=== PATIENT | male | born 1995 | race Caucasian/White ===

== ENCOUNTER 2022-12-12 13:11 | Outpatient (CLI) | payer OTHER ==
--- NOTE | 2022-12-12 14:27 | Sleep Patient Instructions ---
Sleep Center Visit Summary - Patient Visit Information Reason for Visit: Initial consult for evaluation of sleep disordered breathing and other sleep issues. - Patient Instructions Instructions Attached: Sleep Study Home Monitor Additional Instructions: You will be completing a sleep study, either an in-lab polysomnography (PSG) or home sleep study (HST). You will follow-up in the sleep care office after the sleep study is completed to hear the results and talk about therapy, if needed. You will be called by our office staff to schedule this appointment, but you may contact us with any questions. - Clinic Information Contact: [facility] [address] [place] [address] [email or web address] T: [phone]
--- NOTE | 2022-12-12 14:33 | SLEEP CARE CONSULTATION ---
Information from patient questionnaire entered by Won Castanon. I have reviewed and concur with the information entered by Won Castanon. This document represents the service I personally performed and the decisions made by me, Shannen Mon ARNP. History of Present Illness Service Date and Time: 12/12/2022 1311 Reason for Visit: New patient Chief Complaint: reports: Unrefreshed sleep, Snoring, Observed pauses in breathing, Fatigue, Frequent awakenings at night Date of Onset: 12MONTHS Usual bedtime: 1030PM Time it takes to fall asleep: 15-20 Snores at night: Yes Observed to quit breathing while asleep: Yes Sleeps alone due to snoring: No Number of times waking at night: 2-3 Reasons for waking at night: reports: Snoring, Other (UNKNOWN). denies: Choking, Gasping for air Toss, Turn, or Twitch while sleeping: Yes Recalls having dreams: Yes Usually gets out of bed at: 630AM; weekends 08-0900 Feels refreshed in the morning: Yes (sometimes; other mornings feels really tired) Morning headache: No Sleepy or fatigued during the day: Yes Ever fallen asleep while driving: No Takes day naps: No Dreams during day naps: No Additional HPI information: I had the pleasure of seeing ANJUM FLORES today regarding the possibility of him having a sleep disorder. His current complaints are fatigue, frequent night awakenings, observed pauses in breathing, snoring and unrefreshed sleep. His has told him that he snores loudly and will stop breathing in his sleep. He has noted that he does not always feel rested even after sleeping 8 hours. He states he will sometimes sleep through the night without problem and others he will toss and turn all night. He denies waking up gasping for air or feeling like he is choking. He states if he is watching TV after work and laying on couch he may fall asleep but he rarely takes unintentional naps. - Parasomnia Symptoms Ever been unable to move upon waking from sleep: No Walks in sleep: No Talks in sleep: No Ever acted out dreams in sleep: No Ever felt weak in the knees when startled or emotional: No Bothered by creepy, crawly, restless sensations in legs: No Problems with memory or concentration: Yes (both; concentration is worse) Subjective Initial [place] Sleepiness Scale score: 4 (12/12/22) Past Medical History Past Medical History: reports: Other (no significant medical history) Social History The patient's occupation is a AM. Patient is and lives in . Have you smoked in the past 12 months: No Cigarettes per day (20/pack): 10 Years of smokin Quit date: 2017 Smoking Pack Years: 5.0 Alcohol use: Yes Alcohol amount and frequency: 1-3 DRINKS 4-5 PER WEEK Caffeine use: Yes Caffeine amount and frequency: 1 CUP ONCE A DAY Family History Family history of sleep disordered breathing: Yes Family Hx Sleep Apnea: Father: Snoring, Grandparent: Snoring, Sleep apnea - Treated Allergies and Home Medications Known drug allergies: Yes (CEPHALEXIN, CLINDAMICIN) Drug allergies reviewed: Yes Home medication list reviewed: Yes Allergy and home medication list: Allergies cephalexin Allergy (Verified 12/12/22 13:46) clindamycin Allergy (Verified 12/12/22 13:46) Home Medications No Known Home Medications 12/12/22 [History] Review of Systems Weight gain over past 5 years: 20 Cardiovascular: reports: high blood pressure (diet controlled), palpitations Gastrointestinal: denies: heartburn Neurological: denies: headaches Psychiatric: denies: anxiety, depression Ear/Nose/Throat: reports: wisdom teeth removed. denies: tonsillectomy Immunologic: reports: allergies to food or environment (mild seasonal allergies) Physical Exam Vital signs obtained and entered by: WON Bean MA Blood Pressure: 125/83 (RIGHT) Cuff size: wrist Heart Rate: 72 O2 Saturation: 99 Height: 6 ft 2 in Weight: 266 lb 12.8 oz Body Mass Index: 34.2 BMI Classification: Obese Neck circumference: 17.75 Mouth and throat: normal Soft palate: normal Hard palate: normal Uvula: normal Uvula visualization: 50% Mallampati Class II Tongue: enlarged in size with teeth ma on lateral edges Tonsils: 1+ Neck: normal w/o lymphadenopathy or thyromegaly Heart: regular rate and rhythm Lungs: clear bilaterally Impression and Plan 1. Suspected Obstructive Sleep Apnea-Hypopnea Syndrome, as suggested by a history of loud and irregular snoring, observed cessation of breath while asleep, frequent awakening during the night, unrefreshed sleep and cognitive impairment. Narrow oropharynx and obesity are common predisposing factors for obstructive sleep apnea-hypopnea syndrome. I recommend proceeding to polyso mnography to confirm the diagnosis and to assess severity. If the patient has significant sleep disordered breathing, a manual CPAP titration study will also be performed to find the optimal treatment pressure. I informed the patient of what the sleep studies involve and after some discussion, obtained agreement to proceed. The pathophysiology of obstructive sleep apnea-hypopnea syndrome was discussed with the patient and health risks of cardiovascular and cerebrovascular disease if not treated. Risks of drowsy driving discussed in detail and patient advised to avoid long distance driving and to hook puller at the first sign of drowsiness. Patient agreed to plan. * Schedule polysomnography. * Avoid long distance driving or driving when feeling sleepy. * Avoid alcohol, sedative and muscle relaxant around bedtime. * Attempt to lose weight. * Review instructions provided by trained office staff on how to prepare for the sleep study. * Return for follow-up after sleep study completed. Counseling Topics: Weight loss health impact Visit Type: In Office Time Spent with Patient (minutes): 30 Provider Statement: I spent 100% of the Face to Face Visit with the patient with greater than 50% spent counseling the patient and coordination of care.
[2022-12-12 14:37] VITALS: BP 125/83; O2SAT 99
== END 2022-12-12 13:12 | disposition home or self-care (01) ==
LOC: SC 13:11
PROVIDERS: ATTEND Nurse Practitioner Family
DX: R06.83 Snoring (principal); G47.8 Other sleep disorders; R06.81 Apnea, not elsewhere classified; R53.83 Other fatigue; E66.9 Obesity, unspecified; Z68.34 Body mass index [BMI] 34.0-34.9, adult; Z87.891 Personal history of nicotine dependence
CPT/HCPCS: 99203; 99212

== ENCOUNTER 2022-12-27 08:25 | Outpatient (CLI) | payer OTHER | END 2022-12-27 08:26 | disposition home or self-care (01) | LOC: SC 08:25 | PROVIDERS: ATTEND Nurse Practitioner Family | DX: G47.33 Obstructive sleep apnea (adult) (pediatric) (principal); R09.02 Hypoxemia; E66.9 Obesity, unspecified; Z68.34 Body mass index [BMI] 34.0-34.9, adult | CPT/HCPCS: 95806 ==

== ENCOUNTER 2023-01-23 11:26 | Outpatient (CLI) | payer OTHER ==
--- NOTE | 2023-01-23 11:50 | Sleep Patient Instructions ---
Sleep Center Visit Summary - Patient Visit Information Reason for Visit: Sleep study follow-up - Patient Instructions Instructions Attached: CPAP Dc, CPAP Additional Instructions: You are being started on CPAP therapy with pressure setting at 4-15 cmH2O. You will need to call the sleep care office to set up your follow up once you have your APAP machine and we will schedule a visit to check compliance and response to therapy at that time. You may call the office with any concerns about pressure feeling too low or too much for adjustment, if needed. You should contact DME supplier for any questions or concerns about mask or equipment. Please call office to schedule a follow up appointment in the sleep care office one month after obtaining new device. - Clinic Information Contact: [facility] [address] [place] [address] [email or web address] T: [phone]
--- NOTE | 2023-01-23 11:53 | SLEEP CARE CONSULTATION ---
Information from patient questionnaire entered by Meliza Castanon. I have reviewed and concur with the information entered by Meliza Castanon. This document represents the service I personally performed and the decisions made by me, Shannen Mon ARNP. History of Present Illness Service Date and Time: 01/23/2023 112 Initial [place] Sleepiness Scale score: 4 (12/12/22) Current [place] Sleepiness Scale score: 4 (01/23/23) Additional HPI information: ANJUM FLORES returns for follow up and results of the recently performed home sleep study. The sleep study showed mild obstructive sleep apnea with an average AHI of 12.3 and rissa oxygen saturation of 80%. I explained the pathophysiology behind obstructive sleep apnea. We then spent quite a bit of time discussing different treatment options. For mild obstructive sleep apnea, surgery and oral appliance are alternatives to nasal CPAP therapy but in moderate or severe cases, nasal CPAP is the most effective and reliable treatment. Because apnea is primarily in supine position, then positional management therapy could be effective. Methods discussed such as positioning with pillows, using a T-shirt with tennis balls in the back or commercial products that have a pillow format on back to prevent supine sleep. I reviewed the impact of weight changes on sleep apnea and strongly recommended losing weight. After some discussion, the patient opted to go with the nasal CPAP therapy. Nasal autoCPAP set at 4-15 cmH20 will be ordered with rationale explained. A manual titration study will be ordered if unable to find optimal pressure with office adjustments. I explained how CPAP machine works and what to expect when using the machine. Using CPAP every night in order to get used to it was emphasized. Patient advised to put CPAP mask on before getting into bed so as not to fall asleep without CPAP. To assist acclimation to CPAP use, it could also be used for a short time during day while reading or watching TV. The patient was instructed to call the CPAP supplier to discuss any mechanical problem that may occur. If the mask given is uncomfortable or is difficult to keep on through the night even with adjustment, contact the CPAP supplier as many will replace with another mask style if notified before 30 days. If snoring or perceives is not getting enough air or too much air from the machine, notify this office. Patient counseled not drink alcohol less than 4 hours before bedtime as it can increase snoring and apnea. Patient was cautioned about risks of drowsy driving until sleepiness symptoms resolve. Patient denies drowsy driving. Sleep Study - Results Type of Sleep Study: Home sleep study (COMPLETED 12/28/22) Polysomnography/Home Sleep Study results: Physician Impression: The quality of the study is good. The length of the study is adequate (> 240 minutes). Please also see the tabulated and graphic data. 1. Obstructive Sleep Apnea-Hypopnea (ICD-10 G47.33), mild, with an AHI of 12.3 /hr and rissa SaO2 of 80%. During the study, the patient had 33 apneas (33 obstructive, 0 central, 0 mixed) and 58 hypopneas. The longest episode lasted 117.5 seconds. The respiratory events occurred almost exclusively during supine sleep (supine AHI was 30.3 and non-supine, 1.72). 2. Hypoxemia (ICD-10 R09.02), mild, with the lowest oxygen saturation of 80 % and 33.0 minutes with SaO2 under 90%. Baseline oxygen saturation was normal (Average oxygen saturation was 94%). Allergies and Home Medications Known drug allergies: Yes (as listed) Drug allergies reviewed: Yes Home medication list reviewed: Yes (no changes) Allergy and home medication list: Allergies cephalexin Allergy (Verified 01/22/23 12:37) clindamycin Allergy (Verified 01/22/23 12:37) Review of Systems Review of systems same as previous: Yes (NO CHANGES) Physical Exam Vital signs obtained and entered by: MELIZA Bean MA Blood Pressure: 136/88 (LEFT ARM) Cuff size: long Heart Rate: 79 O2 Saturation: 98 Height: 6 ft 2 in Weight: 271 lb 12.8 oz Body Mass Index: 34.9 BMI Classification: Obese Impression and Plan 1. Obstructive Sleep Apnea-Hypopnea Syndrome, mild, with lowest oxygen saturation of 80%. Obviously this is the cause of the patients symptoms of unrefreshed sleep, and excessive daytime sleepiness. As mentioned above, the patient will be started on nasal autoCPAP therapy with pressure set at 4-15 cmH2 O. A manual titration study will be completed if unable to find optimal treatment pressure with office adjustments. Compliance guidelines also reviewed. A copy of compliance guidelines will be given for reference at check out. Because the apnea is more severe supine, I instructed to avoid sleeping supine using pillow positioning until able to start CPAP use. 2. Hypoxemia, mild, with a rissa oxygen saturation of 80% and 33 minutes spent under 90%. His baseline oxygen saturation was normal with an average oxygen saturation of 94%. 3. Obesity, unspecified. Currently patients BMI is 34.9. Obesity increases the risk of apnea, CPAP pressure requirements and overall health risks especially cardiovascular and diabetes. Thus patient is advised to lose weight. * Nasal auto CPAP therapy, pressure at 4-15 cm H2O. * Attempt to lose weight. * Avoid alcohol consumption near bedtime. * Avoid supine sleep until using CPAP. * The patient is again cautioned about driving until sleepiness completely resolves. * Return one month after CPAP obtained. I will assess response to therapy and compliance at that time. Counseling Topics: Sleeping position, Weight loss health impact Prescriptions: Auto CPAP Visit Type: In Office Time Spent with Patient (minutes): 20 Provider Statement: I spent 100% of the Face to Face Visit with the patient with greater than 50% spent counseling the patient and coordination of care.
[2023-01-23 11:57] VITALS: BP 136/88; O2SAT 98
== END 2023-01-23 11:27 | disposition home or self-care (01) ==
LOC: SC 11:26
PROVIDERS: ATTEND Nurse Practitioner Family
DX: G47.33 Obstructive sleep apnea (adult) (pediatric) (principal); R09.02 Hypoxemia; E66.9 Obesity, unspecified; Z68.34 Body mass index [BMI] 34.0-34.9, adult
CPT/HCPCS: 99212; 99213

== ENCOUNTER 2023-03-13 12:48 | Outpatient (CLI) | payer OTHER ==
--- NOTE | 2023-03-13 13:13 | Sleep Patient Instructions ---
Sleep Center Visit Summary - Patient Visit Information Reason for Visit: First Compliance Visit - Patient Instructions Additional Instructions: You were here for follow up of CPAP therapy. You will be continued on CPAP therapy with pressure at 8-12 cmH2O. Please let us know if the pressure change is uncomfortable and we can make further adjustments of the pressure. You should follow up with sleep care in 1-2 months. You may contact us sooner for any questions or concerns. - Clinic Information Contact: [facility] [address] [place] [id number] [email or web address] T: [phone]
--- NOTE | 2023-03-13 13:18 | SLEEP CARE CONSULTATION ---
Information from patient questionnaire entered by Meliza Castanon. I have reviewed and concur with the information entered by Meliza Castanon. This document represents the service I personally performed and the decisions made by , Shannen Mon ARNP. History of Present Illness Service Date and Time: 03/13/2023 1248 Previous diagnosis: Mild, Obstructive Sleep Apnea-Hypopnea Syndrome AHI: 12.3 (11/2022) Reason for follow up: first compliance Equipment type: CPAP (RESMED Airsense 10, s/u 12/2022) Equipment obtained from: Other ([facility]; got initial supplies) Mask style: Full face (hybrid) Backup mask available: No (will keep old mask when replaced) Last cushion change: 1 month Type of Sleep Study: Home sleep study (COMPLETED 12/28/22) HPI additional information: ANJUM FLORES was diagnosed to have mild, AHI 12.3, obstructive sleep apnea- hypopnea syndrome and returned today for CPAP therapy first compliance follow- up. Sleep Study - Results Type of Sleep Study: Home sleep study (COMPLETED 12/28/22) CPAP Compliance Data - Data Reviewed with Patient Average duration of nightly device use: 4 hours 37 minutes Compliance rate %: 53 (22/30 days used) Current pressure setting (cmH2O): 4-15 (median 7.9, avg 10.6, max 11.5) Average residual AHI: 2 Central apnea: 0.2 Obstructive apnea: 1.2 Average large leak: 0 L/min Subjective Missed days of use due to: reports: travel Patient concerns: reports: other (drooling in sleep). denies: aerophagia, mask discomfort, air blowing in eyes, mask leak noise, condensation in mask/hose, nasal congestion, dry mouth, nose, throat, epistaxis Observed to snore while using device: No Current pressure setting perceived as: comfortable On therapy, patient: reports: sleeping better, awakening more refreshed, being more awake and alert during the day, more rested overall. denies: drowsiness while driving Initial [place] Sleepiness Scale score: 4 (12/12/22) Current [place] Sleepiness Scale score: 4 (03/13/23) Allergies and Home Medications Known drug allergies: Yes (as listed) Drug allergies reviewed: Yes Home medication list reviewed: Yes (no changes) Allergy and home medication list: Allergies cephalexin Allergy (Verified 03/12/23 10:03) clindamycin Allergy (Verified 03/12/23 10:03) Review of Systems Review of systems same as previous: Yes (NO CHANGE) Physical Exam Vital signs obtained and entered by: MELIZA Bean MA Blood Pressure: 137/83 (RIGHT ARM) Cuff size: regular Heart Rate: 78 O2 Saturation: 98 Height: 6 ft 2 in Weight: 272 lb Body Mass Index: 34.9 BMI Classification: Obese Impression and Plan 1. Obstructive Sleep Apnea-Hypopnea Syndrome, mild, with fair treatment compliance and good apnea control. On CPAP therapy, the patient has better sleep quality and is more rested overall. Patient traveled a couple of times over the weekends and forgot to take his machine with him. He will not always replace the mask if he gets up to the bathroom at night and has had 4 hours of time with mask on. I encouraged him to continue to wear the mask for at least 6.5 to 7 hours at night to get full benefit of using his CPAP. He voiced understanding. The patients pressure will be changed to autoCPAP 8-12 cmH20 to reflect pressure being used. Patient advised to contact me if pressure change is uncomfortable so that it can be adjusted. Goals for apnea control discussed. Kirsten starksjoe's apnea severity and rationale for treatment to reduce apnea, improve sleep quality and reduce cardiovascular and cerebrovascular events was reviewed. 2. Obesity, unspecified. Currently patients BMI is 34.9. Obesity increases the risk of apnea, CPAP pressure requirements and overall health risks especially cardiovascular and diabetes. Thus patient is advised to lose weight. * Change auto CPAP pressure to 8-12 cmH2O * Notify me if snoring with mask or feeling that the pressure is too much or too little * Attempt to lose weight * Call this office if any problems using CPAP * Return for follow up in 1-2 months, or sooner if concerns arise Counseling Topics: Spare mask, Weight loss health impact Follow up with Sleep Care in: 1-2 months Visit Type: In Office Time Spent with Patient (minutes): 20 Provider Statement: I spent 100% of the Face to Face Visit with the patient with greater than 50% spent counseling the patient and coordination of care.
[2023-03-13 13:24] VITALS: BP 137/83; O2SAT 98
== END 2023-03-13 12:49 | disposition home or self-care (01) ==
LOC: SC 12:48
PROVIDERS: ATTEND Nurse Practitioner Family
DX: G47.33 Obstructive sleep apnea (adult) (pediatric) (principal); E66.9 Obesity, unspecified; Z68.34 Body mass index [BMI] 34.0-34.9, adult
CPT/HCPCS: 99212; 99213

== ENCOUNTER 2023-05-01 08:51 | Outpatient (CLI) | payer OTHER ==
--- NOTE | 2023-05-01 09:11 | Sleep Patient Instructions ---
Sleep Center Visit Summary - Patient Visit Information Reason for Visit: One month follow up for PAP therapy - Patient Instructions Additional Instructions: You were here for follow up of CPAP therapy. You will be continued on CPAP therapy with pressure at 8-12 cmH2O. You should follow up with sleep care in 3 months. You may contact us sooner for any questions or concerns. - Clinic Information Contact: [facility] [address] [place] [address] [email or web address] T: [phone]
--- NOTE | 2023-05-01 09:15 | SLEEP CARE CONSULTATION ---
Information from patient questionnaire entered by Meliza Castanon. I have reviewed and concur with the information entered by Meliza Castanon. This document represents the service I personally performed and the decisions made by me, Shannen Mon ARNP. History of Present Illness Service Date and Time: 05/01/2023 0851 Previous diagnosis: Mild, Obstructive Sleep Apnea-Hypopnea Syndrome AHI: 12.3 (11/2022) Reason for follow up: one month (F/U) Equipment type: CPAP (RESMED Airsense 10, s/u 12/2022) Equipment obtained from: Other ([facility]; got initial supplies) Mask style: Full face (hybrid) Mask brand: Respironics (EcoStart) Backup mask available: No (will keep old mask when replaced) Last cushion change: few months Type of Sleep Study: Home sleep study (COMPLETED 12/28/22) HPI additional information: ANJUM FLORES was diagnosed to have mild, AHI 12.3, obstructive sleep apnea- hypopnea syndrome and returned today for CPAP therapy one month follow-up. Sleep Study - Results Type of Sleep Study: Home sleep study (COMPLETED 12/28/22) CPAP Compliance Data - Data Reviewed with Patient Average duration of nightly device use: 6 HRS 13 MINS Compliance rate %: 83 (03/30/23-04/28/23; days used) Current pressure setting (cmH2O): 8-12 Average residual AHI: 1.6 Central apnea: 0.3 Obstructive apnea: 0.9 Average large leak: 0.1 L/min Subjective Patient concerns: reports: dry mouth, nose, throat (sometimes). denies: aerophagia, mask discomfort, air blowing in eyes, mask leak noise, condensation in mask/hose, nasal congestion, epistaxis Observed to snore while using device: No Current pressure setting perceived as: comfortable On therapy, patient: reports: sleeping better, awakening more refreshed, being more awake and alert during the day, more rested overall. denies: drowsiness while driving Initial [place] Sleepiness Scale score: 4 (12/12/22) Current [place] Sleepiness Scale score: 3 (05/01/23) Allergies and Home Medications Known drug allergies: Yes (as listed) Drug allergies reviewed: Yes Home medication list reviewed: Yes (no changes) Allergy and home medication list: Allergies cephalexin Allergy (Verified 04/09/23 08:40) clindamycin Allergy (Verified 04/09/23 08:40) Review of Systems Review of systems same as previous: Yes (no change) Physical Exam Vital signs obtained and entered by: MELIZA Bean MA Blood Pressure: 130/81 (RIGHT ARM) Cuff size: regular Heart Rate: 62 O2 Saturation: 98 Height: 6 ft 2 in Weight: 262 lb 6.4 oz Weight change since last visit: 10 lbs loss Body Mass Index: 33.7 BMI Classification: Obese Impression and Plan 1. Obstructive Sleep Apnea-Hypopnea Syndrome, mild, with good treatment compliance and good apnea control. On CPAP therapy, the patient has better sleep quality and is more rested overall. He states that he is comfortable wearing the mask and is putting it on every night. Patient has significant improvement of their sleep apnea and is satisfied with current CPAP therapy. Patient denies problems with oral dryness, nasal congestion, epistaxis, skin irritation or aerophagia. I will see him in follow up in 3 months. Patient's apnea severity and rationale for treatment to reduce apnea, improve sleep quality and reduce cardiovascular and cerebrovascular events was reviewed. 2. Obesity, unspecified. Currently patients BMI is 33.7. He has lost weight. He is using an caio to monitor calorie intake. Obesity increases the risk of apnea, CPAP pressure requirements and overall health risks especially cardiovascular and diabetes. Thus patient is advised to continue to try to lose weight. * Continue auto CPAP pressure at 8-12 cmH2O * Notify me if snoring with mask or feeling that the pressure is too much or too little * Attempt to lose weight * Call this office if any problems using CPAP * Return for follow up in 3 months, or sooner if concerns arise Continue with device pressure at (cmH2O): 8-12 Counseling Topics: Spare mask, Weight loss health impact Follow up with Sleep Care in: 3 months Visit Type: In Office Time Spent with Patient (minutes): 11 Provider Statement: I spent 100% of the Face to Face Visit with the patient with greater than 50% spent counseling the patient and coordination of care.
[2023-05-01 09:23] VITALS: BP 130/81; O2SAT 98
== END 2023-05-01 08:52 | disposition home or self-care (01) ==
LOC: SC 08:51
PROVIDERS: ATTEND Nurse Practitioner Family
DX: G47.33 Obstructive sleep apnea (adult) (pediatric) (principal)
CPT/HCPCS: 99212

== ENCOUNTER 2023-08-06 14:28 | Outpatient (CLI) | payer OTHER ==
--- NOTE | 2023-08-06 14:57 | Sleep Patient Instructions ---
Sleep Center Visit Summary - Patient Visit Information Reason for Visit: 3-month follow-up - Patient Instructions Additional Instructions: You were here for follow up of CPAP therapy. You will be continued on CPAP therapy with pressure at 8-12 cmH2O. You should follow up with sleep care in 6 months. You may contact us sooner for any questions or concerns. - Clinic Information Contact: [facility] [address] [place] [address] [email or web address] T: [phone]
--- NOTE | 2023-08-06 15:00 | SLEEP CARE CONSULTATION ---
Information from patient questionnaire entered by Meliza Castanon. I have reviewed and concur with the information entered by Meliza Castanon. This document represents the service I personally performed and the decisions made by , Shannen Mon ARNP. History of Present Illness Service Date and Time: 08/06/2023 1428 Previous diagnosis: Mild, Obstructive Sleep Apnea-Hypopnea Syndrome AHI: 12.3 (11/2022) Reason for follow up: three month (F/U) Equipment type: CPAP (RESMED Airsense 10, s/u 12/2022) Equipment obtained from: Other ([facility]; getting supplies) Mask style: Full face (hybrid) Backup mask available: Yes Last cushion change: 1 month Type of Sleep Study: Home sleep study (COMPLETED 12/28/22) HPI additional information: ANJUM FLORES was diagnosed to have mild, AHI 12.3, obstructive sleep apnea- hypopnea syndrome and returned today for CPAP therapy three month follow-up. Sleep Study - Results Type of Sleep Study: Home sleep study (COMPLETED 12/28/22) CPAP Compliance Data - Data Reviewed with Patient Average duration of nightly device use: 5 HRS 48 MINS Compliance rate %: 39 (05/02/23-07/30/23; 47/90 days used) Current pressure setting (cmH2O): 8-12 Average residual AHI: 1.1 Central apnea: 0.1 Obstructive apnea: 0.8 Hypopnea: 0.2 Average large leak: 0 L/min Subjective Missed days of use due to: reports: travel (forgot machine at home) Patient concerns: denies: aerophagia, mask discomfort, air blowing in eyes, mask leak noise, condensation in mask/hose, nasal congestion, dry mouth, nose, throat, epistaxis Observed to snore while using device: No Current pressure setting perceived as: comfortable On therapy, patient: reports: sleeping better, awakening more refreshed, being more awake and alert during the day, more rested overall. denies: drowsiness while driving Initial [place] Sleepiness Scale score: 4 (12/12/22) Current [place] Sleepiness Scale score: 4 Allergies and Home Medications Known drug allergies: Yes (as listed) Drug allergies reviewed: Yes Home medication list reviewed: Yes (no changes) Allergy and home medication list: Allergies cephalexin Allergy (Verified 08/01/23 09:23) clindamycin Allergy (Verified 08/01/23 09:23) Review of Systems Review of systems same as previous: Yes (no changes) Physical Exam Vital signs obtained and entered by: SHANNEN SHRESTHA Blood Pressure: 162/80 (just had caffiene drink within 30 mins of appt) Cuff size: regular Heart Rate: 102 O2 Saturation: 98 Height: 6 ft 2 in Weight: 267 lb Weight change since last visit: 5 lb gain Body Mass Index: 34.2 BMI Classification: Obese Impression and Plan 1. Obstructive Sleep Apnea-Hypopnea Syndrome, mild, with fair treatment compliance and good apnea control. On CPAP therapy, the patient has better sleep quality and is more rested overall. Patient has significant improvement of their sleep apnea and is satisfied with current CPAP therapy. Patient went on a trip back to his family and he forgot to take his CPAP in the brannon to get out the door in the morning. He otherwise has been compliant in using his machine and I encouraged him to continue to use his machine regularly. He voiced understanding. Patient denies problems with oral dryness, nasal congestion, epistaxis, skin irritation or aerophagia. His blood pressure was a little elevated today. He had a large cup of a caffeinated drink within a half an hour of coming in for his appointment. He states he was feeling well without any adverse symptoms or complaints. Patient's apnea severity and rationale for treatment to reduce apnea, improve sleep quality and reduce cardiovascular and cerebrovascular events was reviewed. 2. Obesity, unspecified. Currently patients BMI is 34.2. Obesity increases the risk of apnea, CPAP pressure requirements and overall health risks especially cardiovascular and diabetes. Thus patient is advised to lose weight. * Continue auto CPAP pressure at 8-12 cmH2O * Notify me if snoring with mask or feeling that the pressure is too much or too little * Attempt to lose weight * Call this office if any problems using CPAP * Return for follow up in 6 months, or sooner if concerns arise Counseling Topics: Spare mask, Weight loss health impact Follow up with Sleep Care in: 6 months Visit Type: In Office Time Spent with Patient (minutes): 21 Provider Statement: I spent 100% of the Face to Face Visit with the patient with greater than 50% spent counseling the patient and coordination of care.
[2023-08-06 15:07] VITALS: BP 162/80; O2SAT 98
== END 2023-08-06 14:29 | disposition home or self-care (01) ==
LOC: SC 14:28
PROVIDERS: ATTEND Nurse Practitioner Family
DX: G47.33 Obstructive sleep apnea (adult) (pediatric) (principal); E66.9 Obesity, unspecified; Z68.34 Body mass index [BMI] 34.0-34.9, adult
CPT/HCPCS: 99212; 99213